=== PATIENT | female | born 1995 | race Caucasian/White ===

== ENCOUNTER 2017-04-30 20:18 | Emergency (ER) | payer OTHER ==
[2017-04-30 20:24] VITALS: BP 128/85
[2017-04-30 22:28] LABS: Hematocrit 38 % (35-47); Hemoglobin 12.9 g/dl (12.0-16.0); Mean Corpuscular HGB Conc 34 g/dl (31-36); Mean Corpuscular Hemoglobin 28 pg (27-31); Mean Corpuscular Volume 83 fL (80-97); Mean Platelet Volume 10 um3 (7.4-10.4); Red Blood Count 4.62 10^6/ul (4.0-5.4); Red Cell Distribution Width 13 % (10.5-15); White Blood Count 10.1 10^3/ul (3.5-10.8)
[2017-04-30 22:34] LABS: Urine Bacteria Absent (Absent); Urine Bilirubin Negative (Negative); Urine Glucose Negative (Negative); Urine Nitrite Negative (Negative)
[2017-04-30 22:44] LABS: ALT 12 U/L (7-52); AST 17 U/L (13-39); Albumin 4.2 g/dL (3.2-5.2); Alkaline Phosphatase 33 U/L (34-104); Anion Gap 7 mmol/L (2-11); BUN/Creatinine Ratio 16.9 (8-20); Blood Urea Nitrogen 13 mg/dL (6-24); CO2 Carbon Dioxide 26 mmol/L (22-32); Calcium 9.9 mg/dL (8.6-10.3); Chloride 104 mmol/L (101-111); EGFR African American 119.5 (>60); EGFR Non-African American 92.9 (>60); Globulin 3.2 g/dL (2-4); Glucose 100 mg/dL (70-100); Lipase 18 U/L (11.0-82.0); Potassium 3.5 mmol/L (3.5-5.0); Sodium 137 mmol/L (133-145); Total Protein 7.4 g/dL (6.4-8.9)
--- NOTE | 2017-05-01 | ED ---
Aysha Villa Rebecca, scribed for Garfield Ladd on 04/30/17 at 2138 . GI/ HPI - HPI Summary HPI Summary: Pt is a 21 y/o F who presents to ED c/o urinary sx. Pt reports hematuria which began gradually 2 weeks ago. She was treated by Urgent Care approximately 1.5 weeks ago with a 7 day course of Abx (Metrodinazole), though pt reports no bacteria was found on urine culture. Hematuria was alleviated by Abx, but then returned, worse today. Additionally c/o dysuria (occasional sharp, burning pain ranked 2/10 when urinating), cloudy urine and "a sense of fullness" in the suprapubic region. Denies fever, N/V, abd pain. No recent PSHx. - History of Current Complaint Chief Complaint: EDUrogenitalProblems Time Seen by Provider: 04/30/17 21:24 Stated Complaint: BLOOD IN URINE Hx Obtained From: Patient Onset/Duration: Started Weeks Ago - 2 weeks ago, Still Present, Worse Since - today Timing: Intermittent Current Severity: Mild - Dysuria Pain Intensity: 2 - Dysuria Pain Characteristics: Sharp, Burning Associated Signs and Symptoms: Positive: Hematuria - 2 weeks, resolved by Abx, then retured and worse today, Other: - Cloudy urine, "fullness" in the suprapubic region. Negative: Nausea, Vomiting, Abdominal Pain Aggravating Factor(s): Nothing Alleviating Factor(s): Medication - Abx improved hematuria temporarily, which then returned - Allergy/Home Medications Allergies/Adverse Reactions: Allergies Allergy/AdvReac Type Severity Reaction Status Date / Time Azithromycin [From Zithromax] Allergy Difficulty Verified 04/30/17 20:25 Breathing PMH/Surg Hx/FS Hx/Imm Hx Endocrine/Hematology History: Denies: Hx Anticoagulant Therapy, Hx Diabetes Cardiovascular History: Denies: Hx Hypertension Infectious Disease History: No Infectious Disease History: Denies: Traveled Outside the [place] in Last 30 Days - Family History Known Family History: Positive: Hypertension, Other - HLD, PCOS, stroke - Social History Occupation: Employed Full-time Alcohol Use: Rare Hx Substance Use: No Substance Use Type: Reports: None Hx Tobacco Use: No Smoking Status (MU): Never Smoked Tobacco Review of Systems Negative: Fever Positive: Other - "fullness" in the suprapubic region. Negative: Abdominal Pain , Vomiting, Nausea Positive: dysuria - sharp, hematuria - 2 weeks, resolved with Abx then returned , other - cloudy urine All Other Systems Reviewed And Are Negative: Yes Physical Exam - Summary Physical Exam Summary: Appearance: Well appearing, no pain distress Skin: warm, dry, reflects adequate perfusion Head/face: normal Eyes: EOMI, LANIE ENT: normal Neck: supple, nontender Resp: CTA, breath sounds present Cardio: RRR, pulses symm Abd: nontender, soft Bowel: present Musc: normal, strength/ROM intact Neuro: normal, sensory motor intact, A&Ox3 Triage Information Reviewed: Yes Vital Signs On Initial Exam: Initial Vitals Temp Pulse Resp BP Pulse Ox 99.2 F 95 18 128/85 100 04/30/17 20:21 04/30/17 20:21 04/30/17 20:21 04/30/17 20:21 04/30/17 20:21 Vital Signs Reviewed: Yes Diagnostics - Vital Signs Vital Signs Temp Pulse Resp BP Pulse Ox 04/30/17 20:21 99.2 F 95 18 128/85 100 - Laboratory Result Diagrams: 04/30/17 22:15 04/30/17 21:32 Lab Statement: Any lab studies that have been ordered have been reviewed, and results considered in the medical decision making process. GIGU Course/Dx - Course Assessment/Plan: Pt is a 21 y/o F who c/o hematuria for 2 weeks which was temporarily allevaited by Abx but returned, worse today. Additionally c/o sharp , burning dysuria, cloudy urine and "a sense of fullness" in the suprapubic region. Denies fever, N/V, abd pain. Was evaluated by Urgent Care 1.5 weeks ago and was prescribed Abx, though pt reports her urine culture showed no bacteria. Had a pelvic exam done by Rody IRVING) which revealed no signs of infection , with a sample collected. Will follow up with findings and treat according. Pt will be D/C to home with a Dx of pelvic discomfort with a follow up with [facility]. - Diagnoses Provider Diagnoses: Pelvic pain Discharge - Discharge Plan Condition: Stable Disposition: HOME Patient Education Materials: Pelvic Pain in Women (ED) Referrals: Cristal Yoder MD [Medical Doctor] - 3 Days (Within the next 3 days. ) The documentation as recorded by the Aysha faust Rebecca accurately reflects the service I personally performed and the decisions made by , Garfield Ladd.
--- NOTE | 2017-05-02 11:13 | PN ---
Progress Note - Progress Note Note: Result from BV/aicha culture swab obtained and positive for gardenerella. Patient was not discharged on any medications, diagnosed with pelvic pain. Patient was spoke with on the phone at 11:08am and she states she is still experiencing symptoms. Flagyl intravaginally was prescribed and sent to pharmacy. Encourage to follow up with OBGYN and is aware of worsening signs and symptoms and to return if symptoms do not improve or worsen. No further action needed at this time.
== END 2017-05-01 00:13 | disposition home or self-care (01) ==
LOC: ED 20:18
DX: R10.2 Pelvic and perineal pain (principal); R30.0 Dysuria; R31.9 Hematuria, unspecified
CPT/HCPCS: 36415; 80053; 81003; 81015; 83690; 84702; 85025; 87480; 87491; 87510; 87591; 87661; 99281